=== PATIENT | female | born 1975 | race Caucasian/White ===

== ENCOUNTER 2018-07-19 12:59 | Inpatient (IN) | payer BC ==
[2018-07-19] MEDS ORDERED: MAGNESIUM HYDROXIDE 2,400 MG/10 ML CUP PO PRN (15:12)
[2018-07-19] MEDS ORDERED: MAG HYDROX/AL HYDROX/SIMETH 30 ML CUP PO PRN (15:12)
[2018-07-19] MEDS: GABAPENTIN 400 MG CAP PO SCH ×2 (15:41→22:01)
[2018-07-19] MEDS: LORazepam 1 MG TAB PO PRN (15:41)
[2018-07-19 15:45] VITALS: BMI 21.2
[2018-07-19] MEDS: NICOTINE 21MG/24HR PATCH TRANSDERM SCH (15:48)
[2018-07-19] MEDS: HYDROcodone/APAP 10-325MG 1 EACH TAB PO SCH ×2 (19:32→22:05)
[2018-07-19] MEDS ORDERED: ARIPiprazole 10 MG TAB PO SCH (21:00)
[2018-07-19] MEDS: VENLAFAXINE HCL ER 75 MG CAP PO SCH (22:02)
[2018-07-19] MEDS: ETODOLAC 400 MG TAB PO SCH (22:04)
[2018-07-20] MEDS: LORazepam 1 MG TAB PO PRN ×2 (03:17→20:52)
[2018-07-20] MEDS: NICOTINE 21MG/24HR PATCH TRANSDERM SCH (06:36)
[2018-07-20] MEDS ORDERED: VENLAFAXINE HCL ER 75 MG CAP PO SCH (09:00)
[2018-07-20] MEDS ORDERED: ARIPiprazole 10 MG TAB PO SCH (09:00)
[2018-07-20] MEDS: GABAPENTIN 400 MG CAP PO SCH ×3 (09:29→20:51)
[2018-07-20] MEDS: VENLAFAXINE HCL ER 37.5 MG CAP PO SCH (09:30)
[2018-07-20] MEDS: ETODOLAC 400 MG TAB PO SCH (09:30)
[2018-07-20] MEDS: VENLAFAXINE HCL ER 75 MG CAP PO SCH (09:30)
[2018-07-20] MEDS: HYDROcodone/APAP 10-325MG 1 EACH TAB PO SCH ×3 (09:30→20:51)
[2018-07-20] MEDS: DULoxetine HCL 30 MG CAPSULE.DR PO SCH (09:33)
[2018-07-20] MEDS: ARIPiprazole 5 MG TAB PO SCH (09:34)
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
[2018-07-21] MEDS: ACETAMINOPHEN TAB 325 MG TAB PO PRN (05:23)
[2018-07-21] MEDS: NICOTINE 21MG/24HR PATCH TRANSDERM SCH (08:11)
[2018-07-21] MEDS: GABAPENTIN 400 MG CAP PO SCH ×3 (08:12→20:59)
[2018-07-21] MEDS: ARIPiprazole 5 MG TAB PO SCH (08:12)
[2018-07-21] MEDS: HYDROcodone/APAP 10-325MG 1 EACH TAB PO SCH ×3 (08:12→20:59)
[2018-07-21] MEDS: VENLAFAXINE HCL ER 37.5 MG CAP PO SCH (08:12)
[2018-07-21] MEDS: DULoxetine HCL 30 MG CAPSULE.DR PO SCH (08:12)
[2018-07-21] MEDS: LORazepam 1 MG TAB PO PRN ×2 (08:12→20:06)
--- NOTE | 2018-07-21 10:51 | P.PN ---
Progress Note - Text Progress Note Date: 07/21/18 Interval History: Patient is a 43-year-old female being seen in coverage for Dr. Byrd. Patient was admitted yesterday for suicidal ideation, depression and is being tapered off of Effexor and started on Cymbalta. Patient reports that she hasn't been physically feeling well with some nausea and diarrhea states that she slept fairly well last evening. She states her appetite is a little off this morning. Patient reports no current suicidal thoughts and states she is feeling less depressed. She states she was attending groups and activities yesterday but has not so far this morning due to not physically feeling well. Mental Status: Appearance/Attitude: Patient is casually dressed, makes good eye contact and was cooperative. Behavior: Patient does not exhibit any psychomotor agitation or retardation. Speech/Language: Patient's speech is spontaneous of normal volume and rhythm and she is coherent. Thought Process: Patient is goal-directed there is no evidence of loose association or flight of ideas Thought Content: Patient is denying any auditory or visual hallucinations and no delusions or paranoid ideation were elicited. Patient states that she was feeling slightly nauseated this morning with some diarrhea states that she physically has not been feeling that well. Patient states that she slept fairly well last night and her appetite is slightly decreased. She reports feeling less depressed. Suicidal/Homicidal Ideation: Patient denies any current suicidal or homicidal ideation Sensorium/Cognition: Patient is alert and oriented to person, place, and time and her recent and remote memory were grossly intact Mood/Affect: Patient's mood is slightly depressed or affect slightly blunted Insight/Judgment: Patient's insight and judgment are intact Assessment: Patient states she has no side effects from the medication but reports some nausea and diarrhea yesterday. She states that she slept well last night and is documented that she slept for 6 hours. Patient denying any current suicidal ideation and states that she's feeling less depressed. Patient reports that she was attending groups and activities yesterday but so far this morning has not as she is not physically feeling well. Plan: Patient continues on Abilify 5 mg, Cymbalta 30 mg and Effexor 37.5 mg extended release and is on a cross taper from Effexor to Cymbalta. Patient was encouraged to attend groups and activities. Patient continues to require hospitalization to stabilize her mood.
[2018-07-22 04:44] VITALS: RESP 12
[2018-07-22] MEDS: NICOTINE 21MG/24HR PATCH TRANSDERM SCH (08:33)
[2018-07-22] MEDS: HYDROcodone/APAP 10-325MG 1 EACH TAB PO SCH ×3 (08:34→20:29)
[2018-07-22] MEDS: ARIPiprazole 5 MG TAB PO SCH (08:34)
[2018-07-22] MEDS: VENLAFAXINE HCL ER 37.5 MG CAP PO SCH (08:34)
[2018-07-22] MEDS: GABAPENTIN 400 MG CAP PO SCH ×3 (08:34→20:29)
[2018-07-22] MEDS: DULoxetine HCL 30 MG CAPSULE.DR PO SCH (08:34)
--- NOTE | 2018-07-22 11:51 | P.PN ---
Progress Note - Text Progress Note Date: 07/22/18 Interval History: Patient is a 43-year-old female who was seen today in coverage for Dr. Byrd. She states that she wanted a warm compresses for her neck, and also wanted something to assist with sleep and she wakes up in the middle of the night frequently. Patient states that she was taking Adderall as an outpatient as someone and diagnosed her with an attention deficit disorder and states that she actually is feeling better off of the Adderall. Patient states that she is feeling better and also is no longer having any suicidal thoughts. Patient has been attending groups and activities and has found them beneficial. Mental Status: Appearance/Attitude: Patient is casually dressed, makes good eye contact and is cooperative. Behavior: Patient does not exhibit any psychomotor agitation or retardation. Speech/Language: Patient's speech is spontaneous of normal volume and rhythm and she is coherent. Thought Process: Patient is goal-directed there is no evidence of loose association or flight of ideas Thought Content: Patient denies any auditory or visual hallucinations and no delusions or paranoid ideation were elicited. Patient states that she's been feeling better, states that her neck pain is worse and states that she is not sleeping well at night waking up frequently. She reports her appetite is good. Suicidal/Homicidal Ideation: Patient reports no current suicidal or homicidal ideation Sensorium/Cognition: Patient is alert and oriented to person, place, and time and her recent and remote memory are grossly intact Mood/Affect: Patient's mood is less depressed her affect is appropriate Insight/Judgment: Patient's insight and judgment are intact Assessment: Patient states that she's feeling better, states that she is not taking Adderall here and was as an outpatient and feels better off of the medication. She is reporting that her sleep remains disrupted. She states that she is not feeling as depressed and no longer having any suicidal thoughts. She states that a visit with her parents went well last evening. She has been attending groups and activities. Patient reports no side effects from the medications. Plan: Patient will continue on Abilify 5 mg daily and continue on a cross titration from Effexor to Cymbalta and is currently on 30 mg of Cymbalta and 37.5 mg of Effexor. Patient and I discussed a trial of melatonin 3 mg at bedtime to assist with her sleep. Patient was also ordered a warm compress to assist with her neck pain. Patient continues to require hospitalization to further stabilize her mood.
[2018-07-22] MEDS: LORazepam 1 MG TAB PO PRN (15:17)
[2018-07-22] MEDS ORDERED: MELATONIN 3 MG TABLET PO SCH (21:00)
[2018-07-23] MEDS: ACETAMINOPHEN TAB 325 MG TAB PO PRN (05:36)
[2018-07-23 06:31] VITALS: BP 114/73; PULSE 73; TEMP 97.8
[2018-07-23] MEDS: DULoxetine HCL 30 MG CAPSULE.DR PO SCH (09:00)
[2018-07-23] MEDS: ARIPiprazole 5 MG TAB PO SCH (09:00)
[2018-07-23] MEDS: VENLAFAXINE HCL ER 37.5 MG CAP PO SCH (09:00)
[2018-07-23] MEDS: HYDROcodone/APAP 10-325MG 1 EACH TAB PO SCH (09:00)
[2018-07-23] MEDS: NICOTINE 21MG/24HR PATCH TRANSDERM SCH (09:02)
[2018-07-23] MEDS: GABAPENTIN 400 MG CAP PO SCH (09:02)
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
[2018-07-24] MEDS ORDERED: DULoxetine HCL 60 MG CAPSULE.DR PO SCH (09:00)
== END 2018-07-23 13:58 | disposition home or self-care (01) | DRG 885 ==
LOC: 3MHU 14:19
PROVIDERS: ADMIT Psychiatry & Neurology Psychiatry; ATTEND Psychiatry & Neurology Psychiatry
DX: F33.2 Major depressive disorder, recurrent severe without psychotic features (principal); R45.851 Suicidal ideations; G62.9 Polyneuropathy, unspecified; M48.02 Spinal stenosis, cervical region; F90.9 Attention-deficit hyperactivity disorder, unspecified type; F41.9 Anxiety disorder, unspecified; F10.21 Alcohol dependence, in remission; F12.90 Cannabis use, unspecified, uncomplicated; G89.29 Other chronic pain; M54.2 Cervicalgia; M54.9 Dorsalgia, unspecified; R19.7 Diarrhea, unspecified; F17.210 Nicotine dependence, cigarettes, uncomplicated; Z71.6 Tobacco abuse counseling; Z63.0 Problems in relationship with spouse or partner; Z79.891 Long term (current) use of opiate analgesic; Z79.899 Other long term (current) drug therapy; Z90.710 Acquired absence of both cervix and uterus; Z88.5 Allergy status to narcotic agent
CPT/HCPCS: 84443

== ENCOUNTER → 2020-07-03 | Outpatient (CLI) | payer BC ==
--- NOTE | 2020-07-03 18:42 | US ---
EXAMINATION TYPE: US thyroid st tissue head/neck DATE OF EXAM: 07/03/2020 COMPARISON: NONE CLINICAL HISTORY: E07.9 Disorder of thyroid. Thyroid nodule seen on MRI GLAND SIZE: Right Lobe: 6.0 x 1.4 x 1.5 cm Overall Parenchyma: homogenous Left Lobe: 4.9 x 1.0 x 1.4 cm Overall Parenchyma: homogeneous Isthmus Thickness: .3 cm NODULES RIGHT: # of nodules measured on right: 1 1. 1.1 X .8 x .9 cm cystic nodule at the upper pole with well-defined margins; . This nodule is wi romain than tall and shows no intranodular vascularity. Prior size: No prior LEFT: # of nodules measured on left: 1 1. .9 X .6 x .8 cm cystic nodule at the upper pole with well-defined margins; . This nodule is wid er than tall and shows no intranodular vascularity. Prior size: No prior ISTHMUS: # of nodules measured in the isthmus: 0 Bilateral neck scanned, no evidence of lymphadenopathy. IMPRESSION: 1.1 cm complex right thyroid nodule partially cystic. 2. Subcentimeter left thyroid cystic nodule. 3. Thyromegaly
== END | disposition home or self-care (01) ==
LOC: RADUSWWP 15:28
PROVIDERS: ATTEND Family Medicine
DX: E04.2 Nontoxic multinodular goiter (principal)
CPT/HCPCS: 76536; 93005

== ENCOUNTER → 2020-11-09 | Outpatient (CLI) | payer BC ==
--- NOTE | 2020-11-16 10:00 | MM ---
Reason for exam: screening (asymptomatic). Last mammogram was performed 4 years ago. Physical Findings: A clinical breast exam by your physician is recommended on an annual basis and results should be correlated with mammographic findings. MG Screening Mammo w CAD Bilateral CC and MLO view(s) were taken. Prior study comparison: November 15, 2016, mammogram, performed at [facility]. December 17, 2015, mammogram, performed at [facility]. The breast tissue is heterogeneously dense. This may lower the sensitivity of mammography. There is no discrete abnormality. No significant changes when compared with prior studies. ASSESSMENT: Negative, BI-RAD 1 RECOMMENDATION: Routine screening mammogram of both breasts in 1 year.
== END | disposition home or self-care (01) ==
LOC: RADMAMWWP 09:00
PROVIDERS: ATTEND Family Medicine
DX: Z12.31 Encounter for screening mammogram for malignant neoplasm of breast (principal)
CPT/HCPCS: 77067

== ENCOUNTER → 2021-11-19 | Outpatient (CLI) | payer BC ==
--- NOTE | 2021-11-19 10:36 | CT ---
EXAMINATION TYPE: CT abdomen pelvis w con DATE OF EXAM: 11/19/2021 COMPARISON: NONE HISTORY: 46-year-old female R10.9, unspecified abdominal pain, Severe lower pelvic pain TECHNIQUE: Contiguous axial scanning of the abdomen and pelvis following administration of 100 ml Iso otilia 300 IV contrast. Delayed images through the kidneys and coronal/sagittal reconstructions perform ed. CT DLP: 845 mGycm Automated exposure control for dose reduction was used. FINDINGS: Heart normal size without pericardial effusion. Small hiatal hernia. Minimal strandy atelectasis lowe r lungs. No pleural effusion. Liver borderline enlarged at 17.8 cm. No focal lesion seen. No biliary ductal dilatation. Portal veno us system is patent. Gallbladder, adrenal glands, right kidney, spleen with anterior hilar splenule, and pancreas appear w ithin normal limits. Tiny subcentimeter cortical hypodensity lateral mid pole left kidney too small for accurate CT charac terization, likely small cortical cyst. No dilated small bowel, free fluid, or free air. No mesenteric or retroperitoneal lymphadenopathy. Normal appendix. Oral contrast has reached to the hepatic flexure of the colon. Mild stool within the right side of the colon. Minimal left-sided diverticular changes particularly at the splenic flexure of the colon. No pericolonic inflammatory change. Bladder urine distended. Uterus is retroverted. A left-sided pelvic phlebolith. A 1.3 cm dominant fol licle or functional cyst within the left ovary. The right ovary is not clearly delineated from adjace nt bowel loops. No abnormal fluid collection in the pelvis or pelvic lymphadenopathy. Bones: Mild spurring at the hips. Benign bone island medial right iliac bone. Facet arthropathy lower lumbar spine. Mild degenerative disc disease with disc bulging lower lumbar spine. Grade 1 anterolis thesis L4-L5. IMPRESSION: 1. MINIMAL DIVERTICULAR CHANGE ALONG THE LEFT SIDE OF THE COLON. NO EVIDENCE FOR ACUTE DIVERTICULITIS . 2. RETROVERTED UTERUS. A 1.3 CM DOMINANT FOLLICLE OR FUNCTIONAL CYST OF THE LEFT OVARY. RIGHT OVARY N OT CLEARLY DELINEATED FROM ADJACENT BOWEL LOOPS. 3. SMALL HIATAL HERNIA.
== END | disposition home or self-care (01) ==
LOC: RADCTMAIN 07:38
PROVIDERS: ATTEND Family Medicine
DX: K44.9 Diaphragmatic hernia without obstruction or gangrene (principal); R10.9 Unspecified abdominal pain
CPT/HCPCS: 74177; Q9967